=== PATIENT | male | born 1945 | race American Indian/Alaskan Native ===

== ENCOUNTER 2021-11-03 14:29 | Emergency (ER) | payer MEDICARE ==
[2021-11-03 16:42] LABS: Bacteria,Urine 2+ /HPF (Negative); Mucus,Urine FEW /HPF
[2021-11-03 17:41] LABS: RBC,Urine > 182.0 /HPF (0.0-6.0); WBC,Urine > 182.0 /HPF (0.0-6.0)
--- NOTE | 2021-11-03 18:30 | Emergency Department Report ---
ED Male HPI - General Chief complaint: Urogenital-Male Stated complaint: HEMATURIA Time Seen by Provider: 11/03/21 17:24 Source: patient, EMS Mode of arrival: Stretcher Limitations: No Limitations - History of Present Illness Initial comments: 76 yo M who present with not been able to pass urine for the last 12 hours. He reports burning sensation and that the symptoms started right after passing blood clots. Same thing happened about 3 weeks ago and was irrigated with improvement then. Pt denies any fever or chills. He also reports productive cough for the last 2 weeks and was diagnosed with bronchitis and was suppose to have medication sent to the pharmacy but when she got there there was no prescription. No other modifying or associated factors. - Related Data Previous Rx's Medication Instructions Recorded Last Taken Type Ipratropium (Nf) [Atrovent] 2 puff IH Q6HR PRN 5 Days #1 inha 11/03/21 Unknown Rx NS cephALEXin [Keflex] 500 mg PO Q12HR 10 Days #20 cap NS 11/03/21 Unknown Rx predniSONE [Deltasone] 20 mg PO QDAY 7 Days #7 tab NS 11/03/21 Unknown Rx Allergies Allergy/AdvReac Type Severity Reaction Status Date / Time terazosin AdvReac Unknown Verified 11/03/21 14:41 ED Review of Systems ROS: Stated complaint: HEMATURIA Other details as noted in HPI Comment: All other systems reviewed and negative Respiratory: cough Genitourinary: hematuria, other (unable to urinate ) ED Past Medical Hx - Past Medical History Additional medical history: post quad - Surgical History Past Surgical History?: Yes Additional Surgical History: x2 cervical and x1 lumbar area - Social History Smoking Status: Never Smoker Substance Use Type: None - Medications Home Medications: Home Medications Medication Instructions Recorded Confirmed Last Taken Type Ipratropium (Nf) [Atrovent] 2 puff IH Q6HR PRN 5 Days #1 inha 11/03/21 Unknown Rx NS cephALEXin [Keflex] 500 mg PO Q12HR 10 Days #20 cap NS 11/03/21 Unknown Rx predniSONE [Deltasone] 20 mg PO QDAY 7 Days #7 tab NS 11/03/21 Unknown Rx ED Physical Exam - General Limitations: No Limitations General appearance: alert, in no apparent distress - Head Head exam: Present: normal inspection - Eye Eye exam: Present: normal appearance Pupils: Present: normal accommodation - ENT ENT exam: Present: normal exam, normal orophraynx, mucous membranes moist - Neck Neck exam: Present: normal inspection, full ROM. Absent: tenderness - Respiratory Respiratory exam: Present: normal lung sounds bilaterally. Absent: respiratory distress, accessory muscle use - Cardiovascular Cardiovascular Exam: Present: regular rate, normal rhythm, normal heart sounds - GI/Abdominal GI/Abdominal exam: Present: soft, normal bowel sounds. Absent: distended, tenderness - Extremities Exam Extremities exam: Present: normal inspection, full ROM, normal capillary refill. Absent: pedal edema - Back Exam Back exam: Present: normal inspection. Absent: tenderness - Neurological Exam Neurological exam: Present: alert, oriented X3 - Psychiatric Psychiatric exam: Present: normal affect, normal mood - Skin Skin exam: Present: warm, normal color ED Course Vital Signs 11/03/21 11/03/21 11/03/21 14:37 14:56 17:09 Temperature 98.4 F 97.4 F L Pulse Rate 88 76 66 Respiratory 18 20 20 Rate Blood Pressure 113/67 Blood Pressure 116/72 113/67 114/62 [Left] O2 Sat by Pulse 100 94 95 Oximetry 11/03/21 20:14 Temperature 97.7 F Pulse Rate 56 L Respiratory 19 Rate Blood Pressure Blood Pressure 139/71 [Left] O2 Sat by Pulse 97 Oximetry ED Medical Decision Making - Medical Decision Making unable to urinate-- with chronic rubio catheter -- patient was able to pass the clots and urinate about 750 cc urine shortly-- will go ahead and check Urinalysis and treat accordingly Since this patient is passing urine uninterrupted now will just have patient follow up with his Urologist. UA noted with positive nitrites and leukocytes and patient is symptomatic so will go ahead and treat-- Critical care attestation.: If time is entered above; I have spent that time in minutes in the direct care of this critically ill patient, excluding procedure time. ED Disposition Clinical Impression: Dysuria, Inability to urinate, Bronchitis Hematuria Qualifiers: Hematuria type: unspecified type Qualified Code(s): R31.9 - Hematuria, unspecified UTI (urinary tract infection) Qualifiers: Urinary tract infection type: site unspecified Hematuria presence: with hematuria Qualified Code(s): N39.0 - Urinary tract infection, site not specified; R31.9 - Hematuria, unspecified Disposition: HOME / SELF CARE / HOMELESS Is pt being admited?: No Does the pt Need Aspirin: No Condition: Stable Instructions: Chronic Bronchitis (ED), Urinary Tract Infection, Adult, [id number], Antibiotic Medicine, Adult, [id number], Upper Respiratory Infe ction, Adult, [id number] Additional Instructions: Repeat your antibiotics as prescribed to continue to help your symptoms It is important that you call and follow-up with your urology as planned Call or return to emergency if your symptoms worsen Prescriptions: Ipratropium (Nf) [Atrovent] 2 puff IH Q6HR PRN 5 Days #1 inha NS PRN Reason: Wheezing predniSONE [Deltasone] 20 mg PO QDAY 7 Days #7 tab NS cephALEXin [Keflex] 500 mg PO Q12HR 10 Days #20 cap NS Referrals: PRIMARY CARE, [Primary Care Provider] - 3-5 Days Time of Disposition: 22:39
[2021-11-03 19:10] LABS: Color,Urine Yellow (Yellow)
[2021-11-03 19:11] LABS: Bilirubin,Urine 1+ (Negative); Blood,Urine 2+ (Negative); Ictotest,Urine Negative (Negative); Protein,Urine 300 mg/dL mg/dL (Negative)
[2021-11-03 23:43] VITALS: BP 133/76
== END 2021-11-03 23:42 | disposition home or self-care (01) ==
LOC: ED 14:29
DX: R30.0 Dysuria (principal); J40 Bronchitis, not specified as acute or chronic; R31.9 Hematuria, unspecified; N39.0 Urinary tract infection, site not specified; Z88.8 Allergy status to other drugs, medicaments and biological substances
CPT/HCPCS: 81001; 99284